=== PATIENT | male | born 1970 | race Hispanic/Latino ===

== ENCOUNTER 2022-03-14 12:20 | Emergency (ER) | payer OTHER, SELFPAY ==
[2022-03-14 13:23] LABS: Bilirubin Neg (Negative); Blood, Urine Negative (Negative); Clarity Clear (Clear); Glucose, Urine (Dipstick) Normal (Negative); Ketone, Urine Negative (Negative); Leukocyte Negative (Negative); Nitrite Negative (Negative); Protein, Urine (Dipstick) Negative (Neg-Trace); Specific Gravity, Urine 1.015 (1.005-1.030); Urobilinogen Normal mg/dL (Less than 2)
[2022-03-14 13:41] LABS: #Eosinphils 0.1 10x3/uL (0.0-0.5); #Monocytes 0.7 10x3/uL (0.0-1.1); #Neutrophils 5.9 10x3/uL (1.5-8.4); %Basophils 0.4 % (0.0-2.0); %Eosinophils 0.7 % (0.0-6.0); %Lymphocytes 35.3 % (18.0-47.0); %Monocytes 6.4 % (0.0-10.0); Hemoglobin 16.6 g/dL (13.5-17.5); Mean Corpuscular HGB CONC 35.5 g/dL (32.0-36.0); Mean Corpuscular Hemoglobin 30.6 pg (27.0-33.0); Mean Platelet Volume 11.3 fl (7.4-10.4); Platelet Count 285 10x3/uL (150-450); RBC Distribution Width 11.9 % (11.5-14.5); Red Blood Cell (RBC) Count 5.43 10x6/uL (4.32-5.72); White Blood Cell (WBC) Count 10.3 10x3/uL (3.5-10.5)
[2022-03-14 14:16] LABS: ALT (SGPT) 45 U/L (8-55); AST (SGOT) 27 U/L (5-34); Albumin 4.4 g/dL (3.5-5.0); Alkaline Phosphatase 91 U/L (40-110); Anion Gap 18 mmol/L (10-20); BUN (Urea Nitrogen) 18 mg/dL (8.4-25.7); Bilirubin, Total 0.4 mg/dL (0.2-1.2); Calc. Creatinine Clearance 0 mL/min (70-130); Calcium 9.1 mg/dL (7.8-10.44); Carbon Dioxide 22 mmol/L (22-29); Chloride 102 mmol/L (98-107); Estimated GFR 76; Globulin 2.7 g/dL (2.4-3.5); Glucose 103 mg/dL (70-105); Lipase 80 U/L (8-78); Potassium 3.7 mmol/L (3.5-5.1); Protein, Total 7.1 g/dL (6.0-8.3); Sodium 138 mmol/L (136-145)
[2022-03-14 15:20] LABS: SARS-CoV-2 NAA Rapid Test Not Detected (NotDetected)
== END 2022-03-14 16:52 | disposition home or self-care (01) ==
LOC: CSHERS 12:20
DX: M54.50 Low back pain, unspecified (principal); M54.6 Pain in thoracic spine; Z20.822 Contact with and (suspected) exposure to COVID-19
CPT/HCPCS: 36415; 71045; 74176; 80053; 81003; 83690; 83880; 84484; 85025; 85379; 87086; 93005

== ENCOUNTER 2022-06-20 11:26 | Emergency (ER) | payer SELFPAY | END 2022-06-20 12:24 | disposition home or self-care (01) | LOC: CSHERS 11:26 | DX: R05.9 Cough, unspecified (principal); R06.02 Shortness of breath; K21.9 Gastro-esophageal reflux disease without esophagitis | CPT/HCPCS: 71045 ==

== ENCOUNTER 2022-06-26 12:51 | Emergency (ER) | payer OTHER, SELFPAY ==
[2022-06-26] MEDS ORDERED: Ketorolac Tromethamine 30 MG/ML VIAL ONE (13:30)
[2022-06-26] MEDS ORDERED: Diazepam 10 MG/2 ML SYRINGE ONE (13:31)
[2022-06-26] MEDS ORDERED: Cyclobenzaprine 10 MG TAB ONE (14:05)
== END 2022-06-26 14:26 | disposition home or self-care (01) ==
LOC: CSHERS 12:51
DX: S06.0X1A Concussion with loss of consciousness of 30 minutes or less, initial encounter (principal); M62.830 Muscle spasm of back; V89.2XXA Person injured in unspecified motor-vehicle accident, traffic, initial encounter; K21.9 Gastro-esophageal reflux disease without esophagitis
CPT/HCPCS: 70450; 72125; 96372; J1885; J3360

== ENCOUNTER 2022-09-25 14:29 | Emergency (ER) | payer SELFPAY ==
[2022-09-25] MEDS ORDERED: Doxycycline 100 MG CAP PO SCH (15:30)
== END 2022-09-25 15:46 | disposition home or self-care (01) ==
LOC: CSHERS 14:29
DX: L03.115 Cellulitis of right lower limb (principal); K21.9 Gastro-esophageal reflux disease without esophagitis
CPT/HCPCS: 99282